=== PATIENT | female | born 1995 | race Caucasian/White ===

== ENCOUNTER → 2025-07-12 | Day surgery (SDC) | payer OTHER ==
[~2025-07-12] MED LIST: Gadobenate Dimeglumine 2 ML, Sodium Chloride 0.9% 250 ML 10 ML, Iopamidol 8 ML, Lidocai... FS SCH; Sodium Bicarbonate 2.5 MEQ/5 ML SDV ONE
== END ==
LOC: RAD 08:48
PROVIDERS: ATTEND Family Medicine Sports Medicine
PROC: BQ30YZZ Magnetic Resonance Imaging (MRI) of Right Hip using Other Contrast (ICD-10-PCS; principal; 2025-07-12)
DX: S73.191A Other sprain of right hip, initial encounter (principal); X58.XXXA Exposure to other specified factors, initial encounter
CPT/HCPCS: 27093; 77002; A9577; J0166; J7050; Q9967